=== PATIENT | male | born 1945 | race Caucasian/White ===

== ENCOUNTER 2018-01-10 07:30 | Inpatient (IN) | payer MEDICARE, BC ==
--- NOTE | 2018-01-06 16:46 | HP ---
HISTORY AND PHYSICAL: DATE OF ADMISSION: 01/18/18 SURGEON: Lena Gore MD * (DICTATED BY ENEDELIA SEGURA) PROCEDURE: Left total hip arthroplasty. CHIEF COMPLAINT: Left hip pain. HISTORY OF PRESENT ILLNESS: Christofer is a 72-year-old gentleman who has 8/10 groin pain and lateral hip pain. This has been going on for several years and has been getting worse since August 2017. He has sharp pain in his groin and makes it difficult for him to ambulate more than half a block. He also has pain with stairs and prolonged standing. In the past, he has tried the use of a cane, Tylenol, Advil, Motrin, arthritis cream and has failed conservative treatment at this point. He would like to proceed with a left total hip arthroplasty. The patient does deny a history of problems with anesthesia and he has no history of DVT or PE. He denies any numbness or tingling today. PAST MEDICAL HISTORY: Hypertension, dyslipidemia, osteoarthritis, GERD, type 2 diabetes, morbid obesity, colon polyps, tremors, obstructive sleep apnea, he is still awaiting receipt of his CPAP. PAST SURGICAL HISTORY: Cholecystectomy in 1987 and catheterization in 1987. MEDICATIONS: 1. Metformin 1000 mg twice daily. 2. Glipizide ER 5 mg twice daily. 3. Benazepril 40 mg daily. 4. Januvia 100 mg daily. 5. Metoprolol 25 mg daily. 6. Simvastatin 40 mg daily. 7. Famotidine 40 mg daily. 8. Aspirin 81 mg daily. 9. Fish oil 1000 mg 2 tablets daily. 10. 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 ALLERGIES: No known drug allergies. The patient denies a history of adhesive or latex allergy. FAMILY MEDICAL HISTORY: Mother, pulmonary embolism after hiatal hernia repair and diabetes. Father; diabetes, [place], congestive heart failure. Sisters, diabetes. Brother with arrhythmia, [place], and congestive heart failure. Another brother with a brain aneurysm SOCIAL HISTORY: Former tobacco smoker with a 15-year, 2 pack per day smoking history. Alcohol denies. Drug use denies. REVIEW OF SYSTEMS: The patient endorses his current complaint as outlined in the HPI as well as numbness and tingling in his left third through fifth toes. He endorses a history of diabetes and denies any history of DVT, PE, or problems with anesthesia. Otherwise, a 12-point system review was negative. PHYSICAL EXAMINATION GENERAL: Well-nourished, well-developed 72-year-old male, appearing stated age , in no acute distress. Alert and oriented x3, with no gross neurological findings or deficiencies. Ambulating with an antalgic gait and using a cane. VITAL SIGNS: Height 63 inches, weight 205 pounds. Pulse 73, blood pressure 140 /80, respirations 18, temperature 95.8. BMI 36.3. HEENT: Normocephalic, atraumatic. Pupils equally round and reactive to light. Extraocular movements are intact. NECK: No palpable cervical lymph nodes. His neck is supple. His thyroid is smooth and nontender. PULMONARY: Lungs clear to auscultation bilaterally with no wheezes, rales, or rhonchi. CARDIAC: Regular rate and rhythm with no murmurs, rubs or gallops. No pedal edema. He has 2+ DP pulses bilaterally. MUSCULOSKELETAL: Left lower extremity, the patient's skin is intact with no abrasions or open wounds. Slight tenderness along the trochanteric bursa. Hip flexion 90 degrees actively, 10 degrees from neutral and has no internal rotation, 30 degrees of additional external rotation with pain at the groin. Rotation of any kind of the hip causes severe groin pain. Distally 5/5 ankle dorsiflexion and plantar flexion strength. No hyperreflexia. No edema or varicosities. Full sensation to light touch at the nerve distributions. 2+ palpable DP pulse. DIAGNOSTIC STUDIES: Previous x-rays were reviewed from 11/12/17 from outside source, which showed severe end-stage arthritis with superior doye-hk-crts arthritis. There is osteophyte formation, subchondral sclerosis and joint space narrowing. On the lateral hip, there is also calcification along the greater trochanter superiorly. Likely, the calcification of the abductor is due to the chronic calcific tendinitis. IMPRESSION: Left hip osteoarthritis that is end stage. PLAN: Mr. Christofer Samuels is scheduled to undergo left total hip arthroplasty with Dr. Lena Gore on 01/18/18. He will return to clinic 10 to 14 days postop for followup and suture removal. Prescription for pain medication will be prescribed to the patient's pharmacy of record on discharge from the hospital. He will use Coumadin and Lovenox bridge for DVT prophylaxis with his family history of pulmonary embolism. All questions were answered today. ENEDELIA SEGURA [id number]/[facility] #: [id number] ZIYAD
[2018-01-17] MEDS ORDERED: Buffered Lidocaine 0.9% SYRIN* 5 ML/SYR SYRINGE INTRADERM ONE (12:00)
[2018-01-18] MEDS ORDERED: PROCHLORPERAZINE INJ 5 MG/ML 2 ML VIAL IV PRN (05:40)
[2018-01-18] MEDS ORDERED: Scopolamine 1.5 mg* PATCH TRANSDERM PRN (05:40)
[2018-01-18] MEDS ORDERED: Morphine INJ* 2 MG/ML 1 ML CARPUJECT IV PRN ×2 (05:40→10:39)
[2018-01-18] MEDS ORDERED: Naloxone* 0.4 MG/ML 1 ML VIAL IV PRN (05:40)
[2018-01-18] MEDS ORDERED: oxyCODONE/Acetamin 5/325 MG* TAB PO PRN ×2 (05:40→10:39)
[2018-01-18] MEDS ORDERED: DiMENhydriNATE IV* 50 MG/ML VIAL IV PUSH PRN (05:40)
[2018-01-18] MEDS ORDERED: Famotidine IV* 10 MG/ML 2 ML (20 mg) IV ONE (06:00)
[2018-01-18] MEDS ORDERED: Famotidine IV* 10 MG/ML 2 ML (20 mg) ONE (08:41)
[2018-01-18] MEDS ORDERED: ceFAZolin 2 GM PREMIX (*) 2 GM/50 ML BAG IVPB ONE (08:42)
[2018-01-18] MEDS ORDERED: fentaNYL* 50 MCG/ML 2 ML VIAL (100 MCG VIAL) ONE ×2 (08:48→15:31)
[2018-01-18] MEDS ORDERED: Midazolam* 1 MG/ML 10 ML VIAL (10 MG) ONE (08:48)
[2018-01-18] MEDS ORDERED: Ondansetron INJ* 2 MG/ML VIAL IV PRN (10:39)
[2018-01-18] MEDS ORDERED: oxyCODONE TAB* 5 MG TAB PO PRN (10:39)
[2018-01-18] MEDS ORDERED: Bisacodyl SUPP* 10 MG SUPP PR PRN (10:39)
[2018-01-18] MEDS ORDERED: Polyethylene Glycol 3350* 17 GM PACKET PO PRN (10:39)
[2018-01-18] MEDS ORDERED: diPHENhydraMINE IV* 50 MG/ML 1 ml VIAL (BENADRYL) IV PRN (10:39)
[2018-01-18] MEDS ORDERED: Magnesium Hydroxide LIQ* 30 ML UDC PO PRN (10:39)
[2018-01-18] MEDS ORDERED: Ondansetron TAB* 4 MG PO PRN (10:39)
[2018-01-18] MEDS ORDERED: Acetaminophen TAB* 325 MG PO PRN (10:39)
[2018-01-18] MEDS ORDERED: Cyclobenzaprine TAB* 10 MG PO PRN (10:39)
[2018-01-18] MEDS ORDERED: Ondansetron INJ* 2 MG/ML VIAL ONE (11:57)
[2018-01-18] MEDS ORDERED: Lidocaine 2% PF * 5 ML VIAL ONE (11:57)
[2018-01-18] MEDS ORDERED: Bupivacaine 0.5% SDV PF* 10-30ML VIAL ONE (11:57)
[2018-01-18] MEDS ORDERED: Phenylephrine INJ* 10 MG/ML 1 ML VIAL (10 MG) ONE (11:57)
[2018-01-18] MEDS ORDERED: Dexamethasone IV* 4 MG/ML 1 ML (4 MG) ONE (11:57)
[2018-01-18] MEDS ORDERED: Propofol* 500 MG/50 ML BTL ONE (11:57)
[2018-01-18] MEDS ORDERED: ROPIVACAINE 5 MG/ML 30 ML BTL (0.5%) ONE (11:57)
--- NOTE | 2018-01-18 12:33 | RAD ---
HISTORY: Left total hip replacement COMPARISONS: November 12, 2014 VIEWS: 1, portable intraoperative view of the pelvis during hip arthroplasty FINDINGS: A portable view the pelvis at 11:16 AM demonstrates left hip arthroplasty. There is a temporary femoral sizing component. IMPRESSION: LIMITED PORTABLE VIEW OF THE PELVIS OR HIP ARTHROPLASTY
--- NOTE | 2018-01-18 14:19 | RAD ---
Indication: Left hip arthroplasty. 2 views of left hip demonstrates bipolar left hip replacement in satisfactory position. No loosening is noted. IMPRESSION: Bipolar left hip arthroplasty in satisfactory position.
--- NOTE | 2018-01-18 14:20 | RAD ---
Indication: Pelvic pain. Single view of the pelvis demonstrates left hip replacement in satisfactory position. No loosening is noted. IMPRESSION: Hip replacement in satisfactory position.
[2018-01-18] MEDS ORDERED: oxyCODONE/Acetamin 5/325 MG* TAB ONE (15:31)
[2018-01-18] MEDS: fentaNYL* 50 MCG/ML 2 ML VIAL (100 MCG VIAL) IV PRN ×2 (15:32→15:37)
[2018-01-18] MEDS ORDERED: Dextrose 50% Syringe 50 ML* 25 GM/50 ML SYRINGE IV PUSH PRN (15:45)
[2018-01-18] MEDS: Atorvastatin* 20 MG TAB PO SCH (17:48)
[2018-01-18] MEDS: Famotidine TAB* 20 MG PO SCH (17:48)
[2018-01-18] MEDS: ceFAZolin 1 GM in Dextrose (*) 1 GM/50 ML BAG IVPB SCH (18:04)
[2018-01-18] MEDS: Insulin LISPRO* 1 UNITS UNIT SUBCUT SCH ×2 (18:04→21:35)
[2018-01-18] MEDS: oxyCODONE/Acetamin 5/325 MG* TAB PO PRN (19:48)
[2018-01-18] MEDS ORDERED: Warfarin TAB(*) 6 MG PO ONE (20:00)
[2018-01-18] MEDS ORDERED: metFORMIN* 1,000 MG TAB PO SCH (21:00)
[2018-01-18] MEDS: Magnesium Hydroxide LIQ* 30 ML UDC PO SCH (21:34)
[2018-01-18] MEDS: glipiZIDE TAB.XL* 5 MG PO SCH (21:35)
[2018-01-18] MEDS: Docusate CAP* 100 MG PO SCH (21:35)
--- NOTE | 2018-01-18 22:23 | CONS ---
CC: Dr. Byers; Dr. Gore; Dr. Miranda * CONSULTATION REPORT: DATE OF CONSULT: 01/18/18 PRIMARY CARE PROVIDER: Dr. Robert Byers. REQUESTING PHYSICIAN: Dr. Gore. REASON FOR CONSULTATION: Medical management of the patient's diabetes, hypertension, obstructive sleep apnea, status post left hip replacement. HISTORY OF PRESENT ILLNESS: Mr. Christofer Samuels is a 72-year-old male with history of obstructive sleep apnea, diabetes, hypertension, who is status post elective left hip replacement by Dr. Gore. The patient is seen postoperatively. Currently, he has no complaints. Medical service is requested to follow up in regards to diabetes management. PAST MEDICAL HISTORY: 1. Obesity. 2. Osteoarthritis. 3. Hypertension. 4. Dyslipidemia. 5. Diabetes type 2. 6. Status post cholecystectomy in 1987. 7. Cardiac catheterization in 1987, but "no stents placed." MEDICATIONS: Outpatient medications included: 1. Metformin 1000 mg twice a day. 2. Glipizide ER 5 mg twice a day. 3. Benazepril 40 mg daily. 4. Januvia 100 mg daily. 5. Metoprolol 25 mg daily. 6. Simvastatin 40 mg daily. 7. Pepcid 40 mg daily. 8. Aspirin 81 mg daily. 9. Fish oil 1000 mg, the patient takes 2 capsules which is 2000 mg daily. ALLERGIES: No known drug allergies. FAMILY HISTORY: Positive for mother with history of PE after hiatal hernia repair and also history of diabetes. Father with history of diabetes, congestive heart failure. Brother with history of brain aneurysm. SOCIAL HISTORY: The patient is a former tobacco smoker and has history of 15- year smoking of 2 packs per day, currently denies. He denies any alcohol or drug use. He lives with his who is his surrogate. REVIEW OF SYSTEMS: Please see history of present illness. The patient denies any pain. He has had spinal anesthesia for the surgery. Feels well, denies shortness of breath. He stated that he has been using CPAP, he says, during the four nights in a row and he feels better using it than without it. All the remaining 12 systems were reviewed with the patient and were otherwise negative. PHYSICAL EXAM: Blood pressure of 152/70, heart rate of 84 and regular, respiratory rate 16, oxygen saturation is 93% on room air, temperature of 96.8. General: The patient is a very pleasant 72-year-old male who is in no acute distress. Alert, awake, and oriented x3. HEENT: Head is atraumatic, normocephalic. Eyes: Pupils are equal, reactive to light and accommodation. Oropharynx clear. Mucosa moist. Neck: Supple. No JVD. No bruit bilaterally. Cardiovascular: Regular rate and rhythm. No murmur. Respiratory: Clear to auscultation bilaterally. Abdomen: Soft, nontender. Bowel sounds present in all 4 quadrants. Extremities: There is no edema. Pulses are +2 bilaterally. No clubbing or cyanosis. Evaluation of the skin, the patient's left hip postsurgical dressings were not removed. Otherwise, the patient has no skin ecchymosis or rashes noted. Psychiatric Evaluation: The patient is oriented x3 with no evidence of anxiety or depression. DIAGNOSTIC STUDIES/LAB DATA: Current laboratory data shows only glucose of 114. Remaining laboratory data is pending. ASSESSMENT AND PLAN: 1. In regards to patient's status post left hip replacement, the patient is going to be placed on DVT prophylaxis as per primary surgical service. 2. For diabetes type 2, his metformin is going to be held as well as his glipizide and Januvia. The patient is going to be placed on insulin sliding scale as well as diabetic diet. 3. For hypertension, the patient's metoprolol is going to be continued as well as benazepril. 4. For DVT prophylaxis, again as per primary orthopedic surgical service, the patient is going to be continued on Coumadin and Lovenox that was already ordered. Thank you very much for allowing me to see your the patient in consultation. We will follow on a daily basis. TIME SPENT: Approximately 55 minutes was spent on the patient's consult. [id number]/[facility] #: [id number] ZIYAD
[2018-01-19] MEDS: oxyCODONE/Acetamin 5/325 MG* TAB PO PRN ×5 (00:07→20:13)
[2018-01-19] MEDS: ceFAZolin 1 GM in Dextrose (*) 1 GM/50 ML BAG IVPB SCH ×2 (02:15→09:43)
[2018-01-19 06:07] LABS: Hematocrit 39 % (42-52); Hemoglobin 12.9 g/dl (14.0-18.0); Mean Platelet Volume 8.3 um3 (7.4-10.4); Platelet Count 237 10^3/ul (150-450)
[2018-01-19 06:15] LABS: INR 1.06 (0.77-1.02)
[2018-01-19 06:23] LABS: EGFR Non-African American 135.8 (>60)
[2018-01-19] MEDS: Insulin LISPRO* 1 UNITS UNIT SUBCUT SCH ×4 (07:10→22:10)
[2018-01-19] MEDS: Magnesium Hydroxide LIQ* 30 ML UDC PO SCH ×3 (07:11→22:31)
[2018-01-19] MEDS: Metoprolol Succinate XL TAB* 25 MG PO SCH (08:13)
[2018-01-19] MEDS: Lisinopril TAB* 10 MG PO SCH (08:13)
[2018-01-19] MEDS: glipiZIDE TAB.XL* 5 MG PO SCH ×2 (08:13→22:10)
[2018-01-19] MEDS: Docusate CAP* 100 MG PO SCH ×2 (08:14→22:09)
[2018-01-19] MEDS ORDERED: SitaGLIPtin (NF) 100 MG TAB PO SCH (09:00)
--- NOTE | 2018-01-19 10:06 | PN ---
Progress Note - Progress Note Date of Service: 01/19/18 SOAP: Subjective: []Patient seen at bedside with present. He feels well with reported 3/10 pain of hip left hip at rest and 6/10 pain with ambulation. He has walked to the end of the castillo with physical therapy. Denies LLE numbness, CP, SOB, dizziness, nausea. Objective: [] Laboratory Last Values Hgb 12.9 g/dl (14.0-18.0) L 01/19/18 05:49 Hct 39 % (42-52) L 01/19/18 05:49 Plt Count 237 10^3/ul (150-450) 01/19/18 05:49 MPV 8.3 um3 (7.4-10.4) 01/19/18 05:49 INR (Anticoag Therapy) 1.06 (0.77-1.02) H 01/19/18 05:49 Sodium 140 mmol/L (139-145) 01/19/18 05:49 Potassium 4.2 mmol/L (3.5-5.0) 01/19/18 05:49 Chloride 105 mmol/L (101-111) 01/19/18 05:49 Carbon Dioxide 29 mmol/L (22-32) 01/19/18 05:49 Anion Gap 6 mmol/L (2-11) 01/19/18 05:49 BUN 10 mg/dL (6-24) 01/19/18 05:49 Creatinine 0.59 mg/dL (0.67-1.17) L 01/19/18 05:49 Est GFR ( Amer) 174.7 (>60) 01/19/18 05:49 Est GFR (Non-Af Amer) 135.8 (>60) 01/19/18 05:49 BUN/Creatinine Ratio 16.9 (8-20) 01/19/18 05:49 Glucose 129 mg/dL (70-100) H 01/19/18 05:49 POC Glucose (mg/dL) 289 mg/dL (70-100) H 01/18/18 21:10 Calcium 9.1 mg/dL (8.6-10.3) 01/19/18 05:49 Vital Signs Temp 98.3 F 01/19/18 07:31 Pulse 77 01/19/18 07:31 Resp 18 01/19/18 08:52 BP 123/63 01/19/18 07:31 Pulse Ox 94 01/19/18 08:00 Intake & Output 01/18/18 01/19/18 01/19/18 18:59 06:59 18:59 Intake Total 3000 1605 340 Output Total 1350 1590 0 Balance 1650 15 340 Weight 199 lb Intake: IV Fluids 3000 1085 ABX - CEFAZOLIN 105 LR 3000 980 Oral 520 340 Output: Urine 0 Riggs 1050 1590 0 Estimated Blood Loss 300 Other: # Bowel Movements 1 Estimated Stool Amount Medium General: Well appearing, NAD LLE: Dressing CDI. Thigh soft, anterior palpation elicits mild spasm like discomfort. DF/PF intact. Sensation intact and capillary refill 2+ distally. DP 2+ BL LE: Calves supple and nontender without erythema, edema or palpable cords. Assessment: []POD 1 sp left total hip arthroplasty 01/18 Dr Gore Plan: []WBAT PT/OT Strict hip precautions Lovenox, coumadin 8 mg today Likely DC tomorrow
--- NOTE | 2018-01-19 11:50 | PN ---
Subjective Date of Service: 01/19/18 Interval History: Pt feels well. Post op pain is controlled.Walked with PT down the hallway and back Objective Active Medications: Acetaminophen (Tylenol Tab*) 650 mg PO Q4H PRN PRN Reason: PAIN OR TEMPERATURE Atorvastatin Calcium (Lipitor*) 20 mg PO QPM [facility] Last Admin: 01/18/18 17:48 Dose: 20 mg Bisacodyl (Dulcolax Supp*) 10 mg NE DAILY PRN PRN Reason: constipation Cyclobenzaprine HCl (Flexeril Tab*) 10 mg PO TID PRN PRN Reason: SPASMS Dextrose (D50w Syringe 50 Ml*) 12.5 gm IV PUSH .FOR FS < 60 - SS PRN PRN Reason: FS < 60 Diphenhydramine HCl (Benadryl Iv*) 12.5 mg IV Q6H PRN PRN Reason: PRURITIS Docusate Sodium (Colace Cap*) 100 mg PO BID [facility] Last Admin: 01/19/18 08:14 Dose: 100 mg Enoxaparin Sodium (Lovenox(*)) 30 mg SUBCUT Q24H [facility] Famotidine (Pepcid Tab*) 40 mg PO QPM [facility] Last Admin: 01/18/18 17:48 Dose: 40 mg Glipizide (Glucotrol Xl*) 5 mg PO BID [facility] Last Admin: 01/19/18 08:13 Dose: 5 mg Lactated Ringer's (Lactated Ringers 1000 Ml Bag*) 1,000 mls @ 100 mls/hr IV PER RATE [facility] Last Admin: 01/19/18 03:16 Dose: 100 mls/hr Insulin Human Lispro (Humalog*) 0 units SUBCUT ACHS [facility] PRN Reason: Protocol Last Admin: 01/19/18 07:10 Dose: Not Given Lactulose (Lactulose*) 30 ml PO Q6H PRN PRN Reason: constipation Lisinopril (Prinivil Tab*) 40 mg PO QAM [facility] Last Admin: 01/19/18 08:13 Dose: 40 mg Magnesium Hydroxide (Milk Of Magnesia Liq*) 30 ml PO BID [facility] Last Admin: 01/19/18 07:11 Dose: Not Given Magnesium Hydroxide (Milk Of Magnesia Liq*) 30 ml PO Q6H PRN PRN Reason: constipation Metoprolol Succinate (Toprol Xl Tab*) 25 mg PO QAM [facility] Last Admin: 01/19/18 08:13 Dose: 25 mg Morphine Sulfate (Morphine Inj (Syringe)*) 2 mg IV Q2H PRN PRN Reason: PAIN Ondansetron HCl (Zofran Inj*) 4 mg IV Q6H PRN PRN Reason: nausea Ondansetron HCl (Zofran Tab*) 4 mg PO Q6H PRN PRN Reason: NAUSEA Oxycodone HCl (Roxycodone Tab*) 10 mg PO Q4H PRN PRN Reason: SEVERE PAIN Last Admin: 01/19/18 06:29 Dose: 10 mg Oxycodone/Acetaminophen (Percocet 5/325 Tab*) 2 tab PO Q4H PRN PRN Reason: PAIN Last Admin: 01/19/18 10:27 Dose: 2 tab Oxycodone/Acetaminophen (Percocet 5/325 Tab*) 1 tab PO Q4H PRN PRN Reason: PAIN Pharmacy Profile Note (Scopolamine Patch Remove*) 1 note PATCH OFF Q72H ONE Stop: 01/21/18 05:42 Pharmacy Profile Note (Coumadin Daily Reminder*) 1 note FOLLOW UP 1700 [facility] Polyethylene Glycol/Electrolytes (Miralax*) 17 gm PO DAILY PRN PRN Reason: Constipation Warfarin Sodium (Coumadin Tab(*)) 8 mg PO ONCE@1700 ONE PRN Reason: Protocol Stop: 01/19/18 17:01 Vital Signs - 8 hr 01/19/18 01/19/18 01/19/18 04:18 06:29 06:32 Temperature Pulse Rate Respiratory 16 16 16 Rate Blood Pressure (mmHg) O2 Sat by Pulse Oximetry 01/19/18 01/19/18 01/19/18 07:31 08:00 08:52 Temperature 98.3 F Pulse Rate 77 Respiratory 16 18 18 Rate Blood Pressure 123/63 (mmHg) O2 Sat by Pulse 94 94 Oximetry 01/19/18 10:27 Temperature Pulse Rate Respiratory 18 Rate Blood Pressure (mmHg) O2 Sat by Pulse Oximetry Oxygen Devices in Use Now: None Appearance: 72 yo M in nAD, aAOx3 Eyes: No Scleral Icterus, PERRLA Ears/Nose/Mouth/Throat: NL Teeth, Lips, Gums, Mucous Membranes Moist Neck: NL Appearance and Movements; NL JVP, Trachea Midline Respiratory: Symmetrical Chest Expansion and Respiratory Effort, Clear to Auscultation Cardiovascular: NL Sounds; No Murmurs; No JVD, RRR, No Edema Abdominal: NL Sounds; No Tenderness; No Distention Lymphatic: No Cervical Adenopathy Extremities: No Clubbing, Cyanosis Skin: No Nodules or Sclerosis, - - left post op hip covered with surgical dressings-wound not inspected Neurological: Alert and Oriented x 3, NL Muscle Strength and Tone Result Diagrams: 01/19/18 05:49 01/19/18 05:49 Assess/Plan/Problems-Billing Assessment: 72 yo M with h/o HTN, DM2, CAROLIN, s/p elective left hip replacement - Patient Problems (1) History of arthroplasty of left hip Comment: as per ortho service (2) HTN (hypertension) Comment: controled with metoprolol and lisinopril (3) DM2 (diabetes mellitus, type 2) Comment: cont ISS, glipizide Metformin and januvia held (4) CAROLIN (obstructive sleep apnea) Comment: Cont home CPAP (5) DVT prophylaxis Comment: cont Coumadin, Lovenox as per surgery Status and Disposition: medicine consult, will follow
[2018-01-19] MEDS: Enoxaparin(*) 30 MG/0.3 ML SYR SUBCUT SCH (12:10)
--- NOTE | 2018-01-19 14:15 | OP ---
DATE OF OPERATION: 01/18/18 - ROOM #347 DATE OF : 49 SURGEON: Lena Gore MD [employer]: ENEDELIA Castillo. Mr. Conrad did help throughout the procedure with preparation of the leg, wound retraction, manipulation of the hip, and wound closure. ANESTHESIOLOGIST: Eduardo Castorena MD ANESTHESIA: Spinal. PRE-OP DIAGNOSIS: Severe end-stage degenerative osteoarthritis of the left hip joint. POST-OP DIAGNOSIS: Severe end-stage degenerative osteoarthritis of the left hip joint. OPERATIVE PROCEDURE: Left total hip arthroplasty. INDICATIONS: Mr. Samuels is a 72-year-old gentleman with years of increasingly severe left hip pain. Radiographs showed imrm-ya-enpe arthritis. He failed conservative treatment with antiinflammatories, pain medication, ambulatory assistive devices, and home exercise program. Due to continued pain and decreased quality of life, he elected to undergo left total hip arthroplasty. Informed consent was obtained from the patient. He understood the risks of the surgery included, but were not limited to, bleeding, infection, damage to nearby structures, continued pain, need for further surgery, intraoperative fracture, nerve palsy, hardware failure or loosening, dislocation, leg length discrepancy, stroke, heart attack, blood clot, and . He wished to proceed. COMPLICATIONS: None. ESTIMATED BLOOD LOSS: 300 cc. SPECIMENS: Femoral head and acetabular reamings sent to Pathology. HARDWARE USED: This is uncemented Shelly total hip hardware. For the cup, a Tritanium cluster hole shell 52D. One single 20-mm screw was used. For the liner, a polyethylene 0-degree Trident X3 36D liner. For the stem, an Accolade TMZF size 25 with a 127-degree neck. For the head, a ceramic delta V40 femoral head 36 +0. INTRAOPERATIVE FINDINGS: Intraoperatively, the patient was noted to have severe end-stage arthritis with complete loss of cartilage in the acetabulum and femoral head. DESCRIPTION OF PROCEDURE: Mr. Samuels was identified in the preanesthesia unit. His left lower extremity was marked as the correct operative side. Informed consent was signed and placed in the chart. The patient was taken to the operating room and placed under spinal anesthesia. A Riggs catheter was placed. The patient was placed in the right lateral decubitus position on the pegboard. All bony prominences were well padded. Left lower extremity was prepped and draped in the usual sterile fashion. Preop time-out was made to correctly identify the patient's side and site. Appropriate perioperative antibiotics were given within 1 hour of incision. A 12-cm posterior hip incision was made with a 10 blade and carried down to the lateral fascial layer. New 10 blade was used to incise the lateral fascia in line with the skin incision. Charnley retractor was placed. The piriformis and conjoint tendons were identified and elevated off the posterolateral femur using electrocautery. These were tagged with #5 Ethibond. Next, electrocautery was used to make a standard posterolateral capsular flap and this was also tagged with #5 Ethibond. The hip was carefully dislocated. Lesser troch to center of the femoral head measured 55 mm. Oscillating saw was used to make the appropriate femoral neck cut. The femoral head was carefully removed. The femur was carefully retracted anteriorly. After appropriate placement of retractors, the acetabulum was well visualized. A long-handled knife was used to sharply remove any remaining labrum from the acetabular rim. The acetabulum was sequentially reamed up to a size 51. Subchondral bleeding bone bed was obtained. 51 trial had excellent fit. Final implant chosen was a 52D Tritanium cluster hole shell. This was impacted into the acetabulum without difficulty. Excellent fit was obtained. Satisfactory anteversion and abduction angle were obtained. A single 20-mm screw was placed in the superior posterior quadrant for extra stability. Liner chosen was a Trident X3 0-degree polyethylene insert 36D. This was impacted into the acetabulum. Stability of the liner was checked and rechecked and noted to be stable. Next, attention was turned to preparation of the proximal femur. A canal finder was used to enter the proximal femur. Proximal femur was sequentially broached up to a size 2.5. Size 2.5 broach had good stability as well as appropriate anteversion. A 127-neck trial with a 36 +0 head trial was chosen. Lesser troch to the center of the femoral head measured 56 mm. The hip was reduced and taken through a range of motion. The hip was stable in all positions. There was good soft tissue tension and appropriate leg length. The hip was carefully dislocated. All trials were removed. Final implant chosen was an Accolade TMZF size 2.5 with a 127-degree neck angle. This was impacted into the femoral canal without difficulty. The femoral stem was stable. There was appropriate anteversion. Femoral head chosen was a 36 +0 Biolox delta ceramic V40 femoral head. This was impacted on to the femoral neck without difficulty. The hip was reduced and taken through range of motion. The hip was stable in all positions. The hip was copiously irrigated with sterile saline. The previously tagged capsule and tendons were reapproximated to the posterolateral femur through two trochanteric drill holes. The lateral fascial layer was closed using interrupted #1 Vicryls. The rest of the incision was closed in a layered fashion using 0 and 2-0 Vicryls. The skin was closed using running 3-0 Monocryl and Dermabond. Sterile Adaptic, 4x4s, and paper tape were used to cover the incision. The patient's anesthesia was reversed without difficulty. He was taken to the PACU in stable condition. Intended weight-bearing will be weightbearing as tolerated with posterior hip precautions. Intended DVT prophylaxis will be Coumadin with a Lovenox bridge. [id number]/[facility] #: [id number] ZIYAD
[2018-01-19] MEDS ORDERED: Warfarin TAB(*) 4 MG PO ONE (17:00)
[2018-01-19] MEDS: Atorvastatin* 20 MG TAB PO SCH (17:33)
[2018-01-19] MEDS: Famotidine TAB* 20 MG PO SCH (17:33)
[2018-01-20] MEDS: oxyCODONE/Acetamin 5/325 MG* TAB PO PRN ×3 (04:54→14:23)
[2018-01-20 05:55] LABS: Hematocrit 38 % (42-52); Hemoglobin 12.3 g/dl (14.0-18.0); Mean Platelet Volume 8.5 um3 (7.4-10.4); Platelet Count 240 10^3/ul (150-450)
[2018-01-20 06:02] LABS: INR 1.66 (0.77-1.02)
[2018-01-20] MEDS: Docusate CAP* 100 MG PO SCH (07:41)
[2018-01-20] MEDS: Insulin LISPRO* 1 UNITS UNIT SUBCUT SCH ×2 (07:41→12:13)
[2018-01-20] MEDS: Metoprolol Succinate XL TAB* 25 MG PO SCH (07:41)
[2018-01-20] MEDS: glipiZIDE TAB.XL* 5 MG PO SCH (07:41)
[2018-01-20] MEDS: Lisinopril TAB* 10 MG PO SCH (07:41)
[2018-01-20] MEDS: Magnesium Hydroxide LIQ* 30 ML UDC PO SCH (07:41)
--- NOTE | 2018-01-20 12:07 | PN ---
Progress Note - Progress Note Date of Service: 01/20/18 SOAP: Subjective: []Patient seen OOB in chair. He is ready for DC. Denies CP, SOB, dizziness, LLE numbness. Objective: [] Vital Signs Temp 98.1 F 01/20/18 07:37 Pulse 80 01/20/18 07:37 Resp 16 01/20/18 10:45 BP 134/62 01/20/18 07:37 Pulse Ox 97 01/20/18 07:37 Intake & Output 01/19/18 01/20/18 01/20/18 18:59 06:59 18:59 Intake Total 885 722 Output Total 200 1075 Balance 685 -353 Intake: IV Fluids 722 ABX - CEFAZOLIN 60 LR 662 Oral 885 0 Output: Urine 200 1075 Riggs 0 Other: Estimated Void Medium # Voids 1 Laboratory Last Values Hgb 12.3 g/dl (14.0-18.0) L 01/20/18 05:24 Hct 38 % (42-52) L 01/20/18 05:24 Plt Count 240 10^3/ul (150-450) 01/20/18 05:24 MPV 8.5 um3 (7.4-10.4) 01/20/18 05:24 INR (Anticoag Therapy) 1.66 (0.77-1.02) H 01/20/18 05:24 Sodium 140 mmol/L (139-145) 01/19/18 05:49 Potassium 4.2 mmol/L (3.5-5.0) 01/19/18 05:49 Chloride 105 mmol/L (101-111) 01/19/18 05:49 Carbon Dioxide 29 mmol/L (22-32) 01/19/18 05:49 Anion Gap 6 mmol/L (2-11) 01/19/18 05:49 BUN 10 mg/dL (6-24) 01/19/18 05:49 Creatinine 0.59 mg/dL (0.67-1.17) L 01/19/18 05:49 Est GFR ( Amer) 174.7 (>60) 01/19/18 05:49 Est GFR (Non-Af Amer) 135.8 (>60) 01/19/18 05:49 BUN/Creatinine Ratio 16.9 (8-20) 01/19/18 05:49 Glucose 129 mg/dL (70-100) H 01/19/18 05:49 POC Glucose (mg/dL) 191 mg/dL (70-100) H 01/20/18 11:45 Calcium 9.1 mg/dL (8.6-10.3) 01/19/18 05:49 General: Well appearing, NAD LLE: Dressing changed, incision CDI. DF/PF intact. Sensation intact and capillary refill 2+ distally. DP 2+ BL LE: Calves supple and nontender without erythema, edema or palpable cords. Assessment: []POD 2 sp left total hip arthroplasty 01/18 Dr Gore Plan: []WBAT PT/OT Strict hip precautions Lovenox, coumadin 2 mg today DC today
[2018-01-20] MEDS: Enoxaparin(*) 30 MG/0.3 ML SYR SUBCUT SCH (12:14)
[2018-01-20 12:40] VITALS: BP 138/71
[2018-01-21] MEDS ORDERED: Scopolamine PATCH Remove* 1 NOTE MISC PATCH OFF ONE (05:41)
--- NOTE | 2018-01-21 06:56 | DS ---
DISCHARGE SUMMARY: DATE OF ADMISSION: 01/18/18 DATE OF DISCHARGE: 01/20/18 DATE OF OPERATION: 01/18/18 PROVIDER: Dr. Lena Gore.* (DICTATED BY ENEDELIA HODGE) BODY AND FRAME MAN: ENEDELIA Castillo PREOPERATIVE DIAGNOSIS: Severe end-stage degenerative osteoarthritis of the left hip joint. OPERATIVE PROCEDURE: Left total hip arthroplasty. HISTORY: Mr. Samuels is a 72-year-old gentleman with years of increasingly severe left knee pain. Radiographs showed bone on bone arthritis. He failed conservative treatment with antiinflammatories, pain medications, ambulatory assistive devices, and home exercise program. Due to continued pain and decreased quality of life, he elected to undergo a left total hip arthroplasty. HOSPITAL COURSE: On 01/18/18, the patient was admitted to [facility]. He underwent a left total hip arthroplasty without complication. He recovered briefly in the PACU and then was transferred to the short-stay surgical unit in stable condition. On postop day 1, hemoglobin 12.9, hematocrit 39, INR 1.06. Vital Signs: Temp 98.3, pulse 77, respiratory rate 18 , blood pressure 123/63, and pulse ox 94. Dressing was clean, dry, and intact. Dorsiflexion and plantarflexion intact. Sensation intact. Capillary refill 2 + distally. Dorsalis pedis pulse 2+. Calves supple and nontender without erythema, edema, or palpable cords. He was seen by our hospitalist service as well without any changes in home medications. On postop day 2 temperature 98.1, pulse 80, respiratory rate 16, blood pressure 134/62, pulse ox 97, hemoglobin 12.3, hematocrit 38, and INR 1.66. The patient was well-appearing in no acute distress. Chest demonstrates incision clean, dry , and intact. Dorsiflexion and plantarflexion intact. Sensation intact and capillary refill 2+ distally. Dorsalis pedis pulse 2+. Calves supple and nontender without erythema, edema, or palpable cords. The patient was deemed medically and orthopedically stable for discharge home. MEDICATIONS: The patient will resume the following medications that he takes regularly at home. 1. Metformin 1000 mg p.o. b.i.d. 2. Pepcid complete tablet chewable one tab p.o. daily p.r.n. 3. Fish oil 1000 mg capsule 2 tabs p.o. b.i.d. 4. Glipizide 5 mg p.o. b.i.d. 5. Januvia 100 mg p.o. q.a.m. 6. Simvastatin 40 mg p.o. q. p.m. 7. Metoprolol succinate XL 25 mg p.o. q.a.m. 8. Famotidine 40 mg p.o. q. p.m. 9. Benazepril 40 mg p.o. q.a.m. 10. Aspirin 81 mg p.o. q. p.m. New Medications: 1. Acetaminophen 650 mg 2 tabs p.o. b.i.d. p.r.n. max daily dose of 5000 mg by mouth. 2. Docusate 100 mg p.o. b.i.d. p.r.n. constipation. 3. Percocet 5/325 one to two tabs every 4 to 6 hours p.r.n., max daily dose of 10. 4. Warfarin 3 mg tablets 1 to 3 tabs daily depending on INR dosing. DISCHARGE PLAN: The patient will be weightbearing as tolerated. He will continue hip precautions including not crossing his legs, not bending greater than 90 degrees, not squatting. Okay to shower on postop day 3. Do not submerge the wound. Visiting home nurse will do wound checks and check INR on Mondays and . Coumadin dosing 01/20/18 to 01/23/18 will be 2 mg daily. Recheck INR on 01/24/18. Pain control, Percocet 5/325 one to two tabs every 4 to 6 hours as needed for pain max daily dose of [address]. [address] Goer in 10 to 14 days. ENEDELIA HODGE [id number]/[facility] #: [id number] [facility]ITALAngel
== END 2018-01-20 17:03 | disposition home health service (06) | DRG 470 ==
LOC: AA 01-18 08:19 → SSU 01-18 10:39
PROVIDERS: ADMIT Orthopaedic Surgery Adult Reconstructive Orthopaedic Surgery; ATTEND Orthopaedic Surgery Adult Reconstructive Orthopaedic Surgery
PROC: 0SRB04A Replacement of Left Hip Joint with Ceramic on Polyethylene Synthetic Substitute, Uncemented, Open Approach (ICD-10-PCS; principal; 2018-01-18 10:00)
DX: M16.12 Unilateral primary osteoarthritis, left hip (principal); I10 Essential (primary) hypertension; E78.5 Hyperlipidemia, unspecified; K21.9 Gastro-esophageal reflux disease without esophagitis; E11.9 Type 2 diabetes mellitus without complications; G47.33 Obstructive sleep apnea (adult) (pediatric); E66.01 Morbid (severe) obesity due to excess calories; R20.2 Paresthesia of skin; M25.752 Osteophyte, left hip; M65.28 Calcific tendinitis, other site; E78.00 Pure hypercholesterolemia, unspecified; Z86.010 Personal history of colon polyps; Z90.49 Acquired absence of other specified parts of digestive tract; Z83.3 Family history of diabetes mellitus; Z83.6 Family history of other diseases of the respiratory system; Z87.891 Personal history of nicotine dependence; Z82.49 Family history of ischemic heart disease and other diseases of the circulatory system; Z79.84 Long term (current) use of oral hypoglycemic drugs; Z79.82 Long term (current) use of aspirin; Z68.36 Body mass index [BMI] 36.0-36.9, adult
CPT/HCPCS: 36415; 72170; 80048; 85014; 85018; 85049; 85610; 94760; A9270-GY; C1713; C1776; G8978-GP-CI; G8978-GP-CJ; G8979-GP-CI; G8980-GP-CI; G8987-GO-CI; G8987-GO-CJ; G8988-GO-CI; G8989-GO-CI; J0690; J1100; J1650; J2250; J2405; J2704; J2795; J3010

== ENCOUNTER 2022-10-09 11:20 | Observation (INO) ==
[~2022-10-09 11:20] MED LIST: Buffered Lidocaine 1% SYRIN 1 ml INTRADERM ONE; HYDROcodone/ACETAMIN 5/325 mg TAB PO PRN; Lactated Ringers 1000 ml BAG 1,000 ML IV SCH; Metoclopramide 5 MG/ML VIAL (10 mg) IV PRN; Naloxone 0.4 mg VIAL 0.4 mg/ml 1 ml VIAL IV PRN; Ondansetron 4 mg VIAL 2 MG/ML 2 ml VIAL IV PRN
[2022-10-09] MEDS ORDERED: ceFAZolin 2 GM PREMIX 2 GM/50 ML BAG ONE (12:12)
[2022-10-09] MEDS ORDERED: Midazolam 2 mg/2 ml VIAL 1 mg/ml 2 ml VIAL (2 mg) ONE (12:50)
[2022-10-09 13:13] LABS: INR 1.1 (0.88-1.18)
[2022-10-09] MEDS ORDERED: ROPIVACAINE 5 MG/ML 30 ML BTL (0.5%) ONE ×2 (13:53→16:06)
[2022-10-09] MEDS ORDERED: Lidocaine 2% PF 5 ML VIAL ONE (14:11)
[2022-10-09] MEDS ORDERED: Ondansetron 4 mg VIAL 2 MG/ML 2 ml VIAL ONE (14:12)
[2022-10-09] MEDS ORDERED: Dexamethasone IV 4 MG/ML VIAL 1 ml VIAL ONE (14:12)
[2022-10-09] MEDS ORDERED: Rocuronium 50 mg VIAL 10 mg/ml 5 ml VIAL (50 mg) ONE (14:12)
[2022-10-09] MEDS ORDERED: fentaNYL 100 mcg/2 ml 50 MCG/ML VIAL ONE ×2 (14:13→17:13)
[2022-10-09] MEDS ORDERED: Ketamine HCL 50 mg/ml 10 ml VIAL (500 MG) ONE (14:55)
[2022-10-09] MEDS ORDERED: HYDROmorphone 0.5 MG/0.5 ML SYRINGE ONE (15:16)
[2022-10-09] MEDS ORDERED: Lactulose 30 ml UDC PO PRN (15:21)
[2022-10-09] MEDS ORDERED: Ondansetron ODT 4 mg TAB 4 MG TAB PO PRN (15:21)
[2022-10-09] MEDS ORDERED: Magnesium Hydroxide LIQ 30 ML UDC PO PRN (15:21)
[2022-10-09] MEDS ORDERED: Ondansetron 4 mg VIAL 2 MG/ML 2 ml VIAL IV PRN (15:21)
[2022-10-09] MEDS ORDERED: Morphine 2 MG/ML SYRINGE IV PRN (15:21)
[2022-10-09] MEDS ORDERED: hydrALAZINE 20 mg/ml 1 ML Vial IV ONE (16:16)
[2022-10-09] MEDS ORDERED: HYDROcodone/ACETAMIN 5/325 mg TAB ONE (17:13)
[2022-10-09] MEDS: fentaNYL 100 mcg/2 ml 50 MCG/ML VIAL IV PRN ×4 (17:14→18:25)
[2022-10-09] MEDS ORDERED: Dextrose 50% Syringe 50 ml 25 GM/50 ML SYRINGE IV PUSH PRN (17:17)
[2022-10-09] MEDS: Lactated Ringers 1000 ml BAG 1,000 ML IV SCH (19:45)
[2022-10-09] MEDS: Magnesium Hydroxide LIQ 30 ML UDC PO SCH (20:39)
[2022-10-09] MEDS ORDERED: CMC:Simvastatin 20 mg TAB (NF) PO SCH (21:00)
[2022-10-09] MEDS: ceFAZolin 1 GM ADVAN 1 GM in NS 0.9% 50 ML 50 ML IVPB SCH (22:25)
[2022-10-10] MEDS: Lactated Ringers 1000 ml BAG 1,000 ML IV SCH (05:54)
[2022-10-10] MEDS: ceFAZolin 1 GM ADVAN 1 GM in NS 0.9% 50 ML 50 ML IVPB SCH ×2 (05:54→12:54)
[2022-10-10 06:55] LABS: Hematocrit 43 % (42-52); Hemoglobin 14.2 g/dL (14.0-18.0); Mean Platelet Volume 8.8 fL (7.4-10.4); Platelet Count 255 10^3/uL (150-450)
[2022-10-10 06:59] LABS: eGFR CKD-EPI 93.4 (>60)
[2022-10-10 07:00] LABS: Potassium 5.1 mmol/L (3.5-5.0)
[2022-10-10] MEDS ORDERED: Vitamin THERAPEUTIC TAB PO SCH (09:00)
[2022-10-10] MEDS: Magnesium Hydroxide LIQ 30 ML UDC PO SCH (09:03)
[2022-10-10 11:33] VITALS: BP 130/65
== END 2022-10-10 13:11 | disposition home or self-care (01) ==
LOC: SSU 11:20 → OR 11:20
PROVIDERS: ADMIT Orthopaedic Surgery Adult Reconstructive Orthopaedic Surgery; ATTEND Orthopaedic Surgery Adult Reconstructive Orthopaedic Surgery